=== PATIENT | female | born 1985 | race African-American/Black ===

== ENCOUNTER 2019-09-04 00:19 | Emergency (ER) | payer MEDICARE, OTHER ==
[~2019-09-04] VITALS: Ht 172.7 cm; Wt 127.0 kg
[2019-09-04] MEDS ORDERED: IPRATROPIUM BROMIDE (0.02%) 0.5MG/2.5ML NEB HHN STA (00:36)
[2019-09-04] MEDS ORDERED: PREDNISONE 20MG TABLET PO STA (00:36)
[2019-09-04] MEDS ORDERED: ALBUTEROL (0.083%) 2.5MG/3ML NEB HHN STA (00:36)
[2019-09-04] MEDS ORDERED: MAGNESIUM 2 G PREMIX 50 ML IV ONE (00:45)
[2019-09-04 00:55] LABS: BASOPHILS % 1.2 % (0.0-2.0); EOSINOPHILS % 0.2 % (0.0-5.0); HEMATOCRIT. 40.8 % (36.0-48.0); HEMOGLOBIN. 13.1 g/dL (12.0-16.0); MEAN CORPUSCULAR HEMOGLOBIN 29.1 pg (28.0-32.0); MEAN CORPUSCULAR VOLUME 90.8 fL (81.0-99.0); MEAN PLATELET VOLUME 8.6 fl (7.4-10.4); MONOCYTES % 9.5 % (2.0-8.0); NEUTROPHILS % 49.1 % (40.0-76.0); PLATELET 329 x1000/uL (130-400); RED BLOOD CELL COUNT 4.49 mill/uL (4.2-5.4)
[2019-09-04 00:58] LABS: CHLORIDE 108 mEq/L (98-107)
[2019-09-04] MEDS ORDERED: IOHEXOL-350 100 ML BOTTLE ONE (03:45)
[2019-09-04] MEDS ORDERED: CEFTRIAXONE 1 G PREMIX 50 ML IV ONE (04:30)
[2019-09-04] MEDS ORDERED: AZITHROMYCIN 500 MG in DEXT 5% WATER 250 ML IV SCH (04:30)
[2019-09-04 04:53] VITALS: BP 113/91
== END 2019-09-04 04:50 | disposition home or self-care (01) ==
LOC: ER 00:38 → CANBEDREQ 05:17
DX: J45.909 Unspecified asthma, uncomplicated (principal); J06.9 Acute upper respiratory infection, unspecified; R00.0 Tachycardia, unspecified; F31.9 Bipolar disorder, unspecified; F20.9 Schizophrenia, unspecified; F17.290 Nicotine dependence, other tobacco product, uncomplicated; Z88.2 Allergy status to sulfonamides
CPT/HCPCS: 36415; 71045; 71275; 80053; 81025; 83605; 83615; 83880; 84145; 85025; 85379; 87040; 87086; 87804; 93005; 94640; 96365; 96366; 96367; 96368; 99285; J0456; J0696; J3475; J7060; J7512; Q9967

== ENCOUNTER 2021-09-29 18:15 | Inpatient (IN) | payer MEDICARE, OTHER ==
[~2021-09-29] VITALS: Ht 167.6 cm; Wt 103.9 kg
[2021-09-29 19:00] LABS: BASOPHILS % 0.5 % (0.0-2.0); EOSINOPHILS % 0.6 % (0.0-5.0); HEMATOCRIT. 44.7 % (36.0-48.0); HEMOGLOBIN. 14.1 g/dL (12.0-16.0); LYMPHOCYTES % 27.9 % (20.0-50.0); MEAN CORPUSCULAR HEMOGLOBIN 28.6 pg (28.0-32.0); MEAN PLATELET VOLUME 8.3 fl (7.4-10.4); MONOCYTES % 14.4 % (2.0-8.0); NEUTROPHILS % 56.6 % (40.0-76.0); PLATELET 260 x1000/uL (130-400); RED BLOOD CELL COUNT 4.91 mill/uL (4.2-5.4); RED CELL DISTRIBUTION WIDTH 16.9 % (11.6-14.6)
[2021-09-29 19:04] LABS: CHLORIDE 104 mEq/L (98-107)
[2021-09-29] MEDS ORDERED: FUROSEMIDE 40MG/4ML VIAL IVP NR (20:00)
[2021-09-29] MEDS ORDERED: ASPIRIN 325MG EC TABLET PO NR (20:00)
[2021-09-29] MEDS ORDERED: ENOXAPARIN 40MG/0.4ML SYR SUBCUT SCH (22:15)
[2021-09-29] MEDS ORDERED: CLONIDINE 0.1MG TABLET PO PRN (22:15)
[2021-09-29] MEDS ORDERED: ONDANSETRON HCL 4MG/2ML INJ IV PRN (22:15)
[2021-09-29] MEDS ORDERED: ACETAMINOPHEN 325MG TABLET PO PRN ×2 (22:15)
[2021-09-29] MEDS ORDERED: ZOLPIDEM TARTRATE 5MG TABLET PO PRN (22:15)
[2021-09-29] MEDS ORDERED: MAGNESIUM/ALUMINUM HYDROXIDE/SIMETHICONE 30ML UDC PO PRN (22:15)
[2021-09-29] MEDS ORDERED: GUAIFENESIN 200MG/10ML SUGAR FREE UDC PO PRN (22:15)
[2021-09-29] MEDS ORDERED: NITROGLYCERIN 0.4MG TABLET SL SL PRN (22:15)
[2021-09-29] MEDS ORDERED: IPRATROPIUM/ALBUTEROL 0.5-3(2.5)MG/3ML NEB NEB PRN (22:15)
[2021-09-29] MEDS ORDERED: LORAZEPAM 0.5MG TABLET PO PRN (22:15)
[2021-09-29] MEDS ORDERED: DEXTROSE 50% WATER 50ML SYRINGE IV PRN (22:15)
[2021-09-29] MEDS ORDERED: DOCUSATE SODIUM 100MG CAPSULE PO PRN (22:15)
[2021-09-29] MEDS ORDERED: KETOROLAC 15MG/ML VIAL IV PRN (22:15)
[2021-09-29 22:26] LABS: ETHANOL BLOOD < 10 mg/dL
[2021-09-29 22:28] LABS: LDL CHOLESTEROL 79 mg/dL (5-100); TOTAL IRON BINDING CAPACITY 441 ug/dL (250-450)
[2021-09-29 22:30] LABS: HDL CHOLESTEROL 40 mg/dL (40-59)
[2021-09-29] MEDS: INSULIN LISPRO 100 UNITS/ML SUBCUT SCH (22:30)
[2021-09-29 22:55] LABS: FOLIC ACID (FOLATE) SERUM 15.2 ng/mL (>5.38)
[2021-09-29] MEDS: BLOOD SUGAR DIAGNOSTIC STRIP TEST SCH (23:16)
[2021-09-30] MEDS: CARVEDILOL 3.125 MG TABLET PO SCH ×2 (06:06→18:38)
[2021-09-30] MEDS: BLOOD SUGAR DIAGNOSTIC STRIP TEST SCH ×4 (06:46→21:00)
[2021-09-30] MEDS: INSULIN LISPRO 100 UNITS/ML SUBCUT SCH ×4 (06:54→21:00)
[2021-09-30] MEDS: FUROSEMIDE 40MG/4ML VIAL IVP SCH ×2 (07:54→18:38)
[2021-09-30 09:41] LABS: HEMATOCRIT. 45.6 % (36.0-48.0); HEMOGLOBIN. 14.6 g/dL (12.0-16.0); MEAN CORPUSCULAR HEMOGLOBIN 28.8 pg (28.0-32.0); MEAN CORPUSCULAR VOLUME 89.8 fL (81.0-99.0); MEAN PLATELET VOLUME 8.2 fl (7.4-10.4); PLATELET 283 x1000/uL (130-400); RED BLOOD CELL COUNT 5.08 mill/uL (4.2-5.4); RED CELL DISTRIBUTION WIDTH 17.2 % (11.6-14.6)
[2021-09-30 09:59] LABS: CHLORIDE 107 mEq/L (98-107)
[2021-09-30 10:05] LABS: PHOSPHORUS 3.7 mg/dL (2.5-4.9)
[2021-09-30 10:13] LABS: CREATINE KINASE MB FRACTION 1.5 ng/mL (0.5-3.6)
[2021-09-30] MEDS: ASPIRIN 325MG EC TABLET PO SCH (11:34)
[2021-09-30] MEDS: FAMOTIDINE 20MG TABLET PO SCH ×2 (11:36→21:48)
[2021-09-30] MEDS: SPIRONOLACTONE 25MG TABLET PO SCH ×2 (11:36→21:49)
[2021-09-30] MEDS: LISINOPRIL 5MG TABLET PO SCH ×2 (11:38→21:48)
[2021-09-30] MEDS: ENOXAPARIN 30MG/0.3ML SYR SUBCUT SCH ×2 (11:39→21:46)
[2021-09-30 11:58] VITALS: BP 144/97
[2021-09-30 12:00] VITALS: BP 144/97
[2021-09-30] MEDS ORDERED: SPIR25TA6 PO (12:37)
[2021-09-30] MEDS ORDERED: APIX2.5T PO (12:39)
[2021-09-30] MEDS ORDERED: METF-874 MT (12:39)
[2021-09-30] MEDS ORDERED: FURO-151 PO (12:39)
[2021-09-30] MEDS ORDERED: VALS40TA11 PO (12:39)
[2021-09-30] MEDS ORDERED: CARV6.2548 PO (12:39)
[2021-09-30 13:00] LABS: PLATELET ESTIMATE NORMAL
[2021-09-30 14:13] LABS: *AMPHETAMINES SCREEN URINE NEGATIVE (NEGATIVE); *BARBITURATES SCREEN URINE NEGATIVE (NEGATIVE); *BENZODIAZEPINES SCREEN URINE NEGATIVE (NEGATIVE); PHENCYCLIDINE URINE SCREEN NEGATIVE (NEGATIVE)
[2021-09-30 14:14] LABS: *COCAINE SCREEN URINE NEGATIVE (NEGATIVE)
[2021-09-30 14:16] LABS: METHADONE URINE SCREEN NEGATIVE (NEGATIVE); OPIATES URINE SCREEN NEGATIVE (NEGATIVE)
[2021-09-30 14:40] LABS: CANNABINOID URINE SCREEN PRESUMTIVE POSITIVE (NEGATIVE)
[2021-09-30 15:34] LABS: CREATINE KINASE MB FRACTION 1.2 ng/mL (0.5-3.6)
[2021-09-30 16:00] VITALS: BP 147/99
[2021-09-30 20:00] VITALS: BP 145/102
[2021-10-01] MEDS: CARVEDILOL 3.125 MG TABLET PO SCH ×2 (06:00→19:03)
[2021-10-01] MEDS: FUROSEMIDE 40MG/4ML VIAL IVP SCH ×2 (07:17→19:02)
[2021-10-01] MEDS: BLOOD SUGAR DIAGNOSTIC STRIP TEST SCH ×4 (07:18→21:13)
[2021-10-01] MEDS: INSULIN LISPRO 100 UNITS/ML SUBCUT SCH ×4 (07:40→21:22)
[2021-10-01 08:00] VITALS: BP 131/96
[2021-10-01] MEDS: ASPIRIN 325MG EC TABLET PO SCH (10:28)
[2021-10-01] MEDS: SPIRONOLACTONE 25MG TABLET PO SCH ×2 (10:28→21:12)
[2021-10-01] MEDS: FAMOTIDINE 20MG TABLET PO SCH ×2 (10:28→21:12)
[2021-10-01] MEDS: LISINOPRIL 5MG TABLET PO SCH ×2 (10:29→21:12)
[2021-10-01] MEDS: ENOXAPARIN 30MG/0.3ML SYR SUBCUT SCH ×2 (10:31→21:13)
[2021-10-01 12:00] VITALS: BP 128/104
[2021-10-01 16:00] VITALS: BP 133/90
[2021-10-01 20:00] VITALS: BP 128/97
[2021-10-02] VITALS: BP 104/62
[2021-10-02 04:00] VITALS: BP 137/81
[2021-10-02] MEDS: BLOOD SUGAR DIAGNOSTIC STRIP TEST SCH ×2 (06:27→12:09)
[2021-10-02] MEDS: INSULIN LISPRO 100 UNITS/ML SUBCUT SCH ×2 (06:27→12:40)
[2021-10-02] MEDS: FUROSEMIDE 40MG/4ML VIAL IVP SCH (06:31)
[2021-10-02] MEDS: CARVEDILOL 3.125 MG TABLET PO SCH (06:31)
[2021-10-02 08:00] VITALS: BP 112/73
[2021-10-02] MEDS: ASPIRIN 325MG EC TABLET PO SCH (08:28)
[2021-10-02] MEDS: SPIRONOLACTONE 25MG TABLET PO SCH (08:28)
[2021-10-02] MEDS: FAMOTIDINE 20MG TABLET PO SCH (08:28)
[2021-10-02] MEDS: LISINOPRIL 5MG TABLET PO SCH (08:28)
[2021-10-02] MEDS: ENOXAPARIN 30MG/0.3ML SYR SUBCUT SCH (08:29)
[2021-10-02 12:00] VITALS: BP 127/71
[2021-10-02 12:26] VITALS: BP 127/71
== END 2021-10-02 14:30 | disposition home or self-care (01) | DRG 280 ==
LOC: ER 18:15 → MICUSO 21:47 → SUPCPDRO 22:04 → 8WST 09-30 09:40
PROVIDERS: ADMIT Internal Medicine; ATTEND Internal Medicine
DX: I21.4 Non-ST elevation (NSTEMI) myocardial infarction (principal); I50.43 Acute on chronic combined systolic (congestive) and diastolic (congestive) heart failure; E44.0 Moderate protein-calorie malnutrition; E87.1 Hypo-osmolality and hyponatremia; I11.0 Hypertensive heart disease with heart failure; E11.9 Type 2 diabetes mellitus without complications; E66.9 Obesity, unspecified; F12.10 Cannabis abuse, uncomplicated; F17.210 Nicotine dependence, cigarettes, uncomplicated; Z79.4 Long term (current) use of insulin; Z79.899 Other long term (current) drug therapy; Z68.37 Body mass index [BMI] 37.0-37.9, adult; Z71.3 Dietary counseling and surveillance; Z86.711 Personal history of pulmonary embolism; Z91.14 Patient's other noncompliance with medication regimen; Z98.891 History of uterine scar from previous surgery; Z88.2 Allergy status to sulfonamides; Z71.6 Tobacco abuse counseling
CPT/HCPCS: 36415; 71045; 80053; 80061; 80305; 80320; 82550; 82553; 82607; 82746; 82962; 83036; 83540; 83550; 83735; 83880; 84100; 84443; 84484; 85025; 87070; 93005; 93970; 99285; J1650; J1815; J1940; G0480

== ENCOUNTER → 2021-11-29 | Outpatient (CLI) | payer MEDICARE, OTHER ==
[~2021-11-29] MED LIST: APIX2.5T PO; CARV6.2548 PO; FURO-151 PO; METF-874 MT; SPIR25TA6 PO; VALS40TA11 PO
== END | disposition home or self-care (01) ==
LOC: CARD 09:55
PROVIDERS: ATTEND Internal Medicine
DX: I08.1 Rheumatic disorders of both mitral and tricuspid valves (principal); I50.9 Heart failure, unspecified; R06.02 Shortness of breath; I27.20 Pulmonary hypertension, unspecified
CPT/HCPCS: 93005; 93306

== ENCOUNTER 2021-12-19 10:13 | Emergency (ER) | payer MEDICARE, OTHER ==
[~2021-12-19] VITALS: Ht 167.6 cm; Wt 82.0 kg
[2021-12-19 11:31] VITALS: BP 143/74
[2021-12-19] MEDS ORDERED: ACETAMINOPHEN 325MG TABLET PO STA (12:43)
[2021-12-19 13:35] LABS: CLARITY URINE CLEAR (CLEAR); COLOR URINE YELLOW (YELLOW); KETONES URINE TRACE (NEGATIVE); LEUKOCYTE ESTERASE URINE NEGATIVE (NEGATIVE); NITRITE URINE POSITIVE (NEGATIVE); OCCULT BLOOD URINE NEGATIVE (NEGATIVE); PH URINE 5.5 (4.5-8.0); PROTEIN URINE TRACE (NEGATIVE); UROBILINOGEN URINE 0.2 E.U./dL (0.2-1.0)
[2021-12-19] MEDS: CEFTRIAXONE SODIUM 500 MG/VIAL IM NR (14:15)
[2021-12-19] MEDS: LIDOCAINE HCL 1% 20ML VIAL (Pyxis) INJ INFIL NR (14:15)
[2021-12-19] MEDS ORDERED: FLUC150T46 PO (15:35)
[2021-12-19] MEDS ORDERED: ACET-2708 PO (15:35)
[2021-12-19] MEDS ORDERED: DOXY100T28 PO (15:35)
[2021-12-21 09:10] LABS: NEISSERIA GONORRHOEAE NAA Negative (Negative)
[2021-12-22] MEDS ORDERED: NITR-87 MT (17:42)
== END 2021-12-19 15:52 | disposition home or self-care (01) ==
LOC: ER 10:13
DX: U07.1 COVID-19 (principal); B37.3 Candidiasis of vulva and vagina; F12.10 Cannabis abuse, uncomplicated; E11.9 Type 2 diabetes mellitus without complications; I11.0 Hypertensive heart disease with heart failure; I50.9 Heart failure, unspecified; Z98.890 Other specified postprocedural states
CPT/HCPCS: 81003; 87077; 87086; 87186; 87210; 87426; 87491; 87591; 96372; 99283; C9803; J0696; J3490

== ENCOUNTER 2022-03-10 15:51 | Emergency (ER) | payer MEDICARE, OTHER ==
[~2022-03-10] VITALS: Ht 167.6 cm; Wt 100.0 kg
[~2022-03-10 15:51] MED LIST changes: +ACET-2708 PO; +DOXY100T28 PO; +FLUC150T46 PO; +NITR-87 MT
[2022-03-10 16:09] VITALS: BP 189/116
[2022-03-13] MEDS ORDERED: LOSA25TA26 MT (16:36)
[2022-03-13] MEDS ORDERED: ESCI5TAB16 MT (16:36)
[2022-03-13] MEDS ORDERED: METF-414 MT ×2 (16:36)
[2022-03-13] MEDS ORDERED: EMPA25TA MT (16:36)
[2022-03-13] MEDS ORDERED: ARIP15TA2 MT (16:36)
[2022-03-13] MEDS ORDERED: AMOX1TAB16 MT (16:36)
== END 2022-03-10 20:31 | disposition left against medical advice (07) ==
LOC: ER 15:51
DX: Z53.21 Procedure and treatment not carried out due to patient leaving prior to being seen by health care provider (principal)

== ENCOUNTER 2023-03-16 11:54 | Emergency (ER) | payer MEDICARE, OTHER ==
[~2023-03-16] VITALS: Ht 175.3 cm; Wt 99.0 kg
[~2023-03-16 11:54] MED LIST changes: +AMOX1TAB16 MT; +ARIP15TA2 MT; -CARV6.2548 PO; +EMPA25TA MT; +ESCI5TAB16 MT; +LOSA25TA26 MT; +METF-414 MT; -METF-874 MT; -VALS40TA11 PO
[2023-03-16 12:00] VITALS: BP 135/89; RESP 20; TEMP 98.7; O2SAT 97
[2023-03-16 12:02] VITALS: PULSE 97
[2023-03-16 13:10] LABS: BASOPHILS % 0.6 % (0.0-2.0); EOSINOPHILS % 0.5 % (0.0-5.0); HEMATOCRIT. 43.7 % (36.0-48.0); MEAN CORPUSCULAR HEMOGLOBIN 29.3 pg (28.0-32.0); MEAN CORPUSCULAR HGB CONC 32.1 g/dL (31.0-37.0); MEAN CORPUSCULAR VOLUME 91.2 fL (81.0-99.0); MEAN PLATELET VOLUME 8.4 fl (7.4-10.4); MONOCYTES % 6.1 % (2.0-8.0); NEUTROPHILS % 59.8 % (40.0-76.0); PLATELET 310 x1000/uL (130-400); RED BLOOD CELL COUNT 4.79 mill/uL (4.2-5.4); RED CELL DISTRIBUTION WIDTH 14.7 % (11.6-14.6); WHITE BLOOD COUNT 8.1 x1000/uL (4.5-11.0)
[2023-03-16 13:43] LABS: CHLORIDE 106 mEq/L (98-107); HCG SCREEN NEGATIVE; INDEX HEMOLYSI 1 (1-3); INDEX ICTERIC 1 (1-4); INDEX LIPEMIC 1 (1-3); POTASSIUM 3.7 mEq/L (3.5-5.1); SODIUM 138 mEq/L (136-145)
[2023-03-16 13:57] LABS: ALANINE AMINOTRANSFERASE 21 IU/L (13-61); ALBUMIN 3.6 g/dL (3.4-5.0); ASPARTATE AMINOTRANSFERASE 21 IU/L (15-37); BILIRUBIN TOTAL 0.8 mg/dL (0.1-1.0); CALCIUM 8.9 mg/dL (8.5-10.1); CARBON DIOXIDE 25 mEq/L (21-32); CREATININE 0.9 mg/dL (0.6-1.3); GLUCOSE 181 mg/dL (70-105); NT PRO B-TYPE NATRIURETIC PEP 239 pg/mL (5-125); PROTEIN TOTAL 8.3 g/dL (6.0-8.3); TROPONIN I HIGH SENSITIVITY 22 ng/L (<54); UREA NITROGEN BLOOD 12 mg/dL (7-21)
[2023-03-16] MEDS ORDERED: MAGNESIUM/ALUMINUM HYDROXIDE/SIMETHICONE 30ML UDC PO STA (14:35)
[2023-03-16 15:09] LABS: CLARITY URINE CLOUDY (CLEAR); COLOR URINE YELLOW (YELLOW); GLUCOSE URINE 3+ (NEGATIVE); KETONES URINE TRACE (NEGATIVE); LEUKOCYTE ESTERASE URINE NEGATIVE (NEGATIVE); NITRITE URINE POSITIVE (NEGATIVE); OCCULT BLOOD URINE NEGATIVE (NEGATIVE); PH URINE 5.5 (4.5-8.0); PROTEIN URINE NEGATIVE (NEGATIVE); SPECIFIC GRAVITY URINE 1.039 (1.005-1.030); UROBILINOGEN URINE 0.2 E.U./dL (0.2-1.0)
[2023-03-16 15:13] LABS: YEAST URINE NONE SEEN
[2023-03-16] MEDS ORDERED: MAGNESIUM/ALUMINUM HYDROXIDE/SIMETHICONE 30ML UDC PO NR (16:30)
[2023-03-16 17:00] LABS: BACTERIA URINE 3+; SQUAMOUS EPITHELIAL CELL URINE 1+ /lpf (RARE/1+); WBC URINE 0-2 /hpf (0-2)
[2023-03-16] MEDS ORDERED: MAG355OR21 MT (17:20)
[2023-03-16] MEDS ORDERED: CEPH500C2 MT (17:20)
== END 2023-03-16 17:38 | disposition home or self-care (01) ==
LOC: ER 11:54
DX: N30.00 Acute cystitis without hematuria (principal); J45.909 Unspecified asthma, uncomplicated; I11.0 Hypertensive heart disease with heart failure; I50.9 Heart failure, unspecified; E11.9 Type 2 diabetes mellitus without complications; F12.90 Cannabis use, unspecified, uncomplicated; Z88.0 Allergy status to penicillin; Z88.2 Allergy status to sulfonamides; Z88.8 Allergy status to other drugs, medicaments and biological substances; Z79.899 Other long term (current) drug therapy; Z98.890 Other specified postprocedural states
CPT/HCPCS: 36415; 74176; 80053; 81003; 81025; 82962; 83880; 84484; 84703; 85025; 93005; 99284

== ENCOUNTER 2023-04-11 22:56 | Emergency (ER) | payer MEDICARE, OTHER ==
[~2023-04-11] VITALS: Ht 167.6 cm; Wt 110.4 kg
[~2023-04-11 22:56] MED LIST changes: +CEPH500C2 MT; +MAG355OR21 MT
[2023-04-11 23:09] VITALS: O2SAT 98
[2023-04-11 23:53] LABS: BASOPHILS % 0.4 % (0.0-2.0); HEMATOCRIT. 38.6 % (36.0-48.0); HEMOGLOBIN. 12.6 g/dL (12.0-16.0); LYMPHOCYTES % 20.9 % (20.0-50.0); MEAN CORPUSCULAR HEMOGLOBIN 29.4 pg (28.0-32.0); MEAN CORPUSCULAR HGB CONC 32.8 g/dL (31.0-37.0); MEAN CORPUSCULAR VOLUME 89.8 fL (81.0-99.0); MEAN PLATELET VOLUME 8.7 fl (7.4-10.4); MONOCYTES % 10.8 % (2.0-8.0); NEUTROPHILS % 67.9 % (40.0-76.0); PLATELET 196 x1000/uL (130-400); WHITE BLOOD COUNT 7.3 x1000/uL (4.5-11.0)
[2023-04-12] LABS: CHLORIDE 104 mEq/L (98-107); INDEX HEMOLYSI 1 (1-3); INDEX ICTERIC 1 (1-4); INDEX LIPEMIC 1 (1-3); POTASSIUM 3.9 mEq/L (3.5-5.1); SODIUM 137 mEq/L (136-145)
[2023-04-12 00:10] LABS: ALANINE AMINOTRANSFERASE 23 IU/L (13-61); ASPARTATE AMINOTRANSFERASE 23 IU/L (15-37); BILIRUBIN TOTAL 0.6 mg/dL (0.1-1.0); CALCIUM 8.5 mg/dL (8.5-10.1); CARBON DIOXIDE 25 mEq/L (21-32); GLUCOSE 157 mg/dL (70-105); PROTEIN TOTAL 8.2 g/dL (6.0-8.3); TROPONIN I HIGH SENSITIVITY 12 ng/L (<54); UREA NITROGEN BLOOD 14 mg/dL (7-21)
[2023-04-12 01:24] LABS: CLARITY URINE TURBID (CLEAR); COLOR URINE DARK YELLOW (YELLOW); GLUCOSE URINE NEGATIVE (NEGATIVE); KETONES URINE 2+ (NEGATIVE); LEUKOCYTE ESTERASE URINE 1+ (NEGATIVE); NITRITE URINE POSITIVE (NEGATIVE); OCCULT BLOOD URINE 3+ (NEGATIVE); PH URINE 5.5 (4.5-8.0); PROTEIN URINE 3+ (NEGATIVE); SPECIFIC GRAVITY URINE 1.034 (1.005-1.030)
[2023-04-12 01:27] LABS: SQUAMOUS EPITHELIAL CELL URINE 1+ /lpf (RARE/1+)
[2023-04-12] MEDS ORDERED: METOCLOPRAMIDE HCL 10MG/2ML VIAL IV NR (02:15)
[2023-04-12] MEDS ORDERED: ACETAMINOPHEN 325MG TABLET PO NR (02:15)
[2023-04-12] MEDS ORDERED: SODIUM CHLORIDE 0.9% 1,000 ML IV NR (02:15)
[2023-04-12] MEDS ORDERED: GUAIFENESIN 600MG ER TABLET PO SCH (02:30)
[2023-04-12] MEDS ORDERED: SODIUM CHLORIDE 0.9% 250 ML IV ONE (02:45)
[2023-04-12] MEDS ORDERED: GUAI600T26 MT (04:09)
[2023-04-12] MEDS ORDERED: ACET-2708 MT (04:09)
[2023-04-12] MEDS ORDERED: NITR-87 MT (04:10)
[2023-04-12] MEDS ORDERED: ONDA4TAB50 MT (04:22)
[2023-04-12 05:02] VITALS: BP 118/76; PULSE 89; RESP 16; TEMP 99.4
[2023-04-12 05:24] LABS: WBC URINE 15-25 /hpf (0-2)
[2023-04-12 05:26] LABS: BACTERIA URINE 3+
[2023-04-12 05:27] LABS: YEAST URINE NONE SEEN
== END 2023-04-12 05:05 | disposition home or self-care (01) ==
LOC: ER 22:56
DX: N39.0 Urinary tract infection, site not specified (principal); G44.209 Tension-type headache, unspecified, not intractable; B34.9 Viral infection, unspecified; F12.10 Cannabis abuse, uncomplicated; I11.0 Hypertensive heart disease with heart failure; I50.9 Heart failure, unspecified; Z20.822 Contact with and (suspected) exposure to COVID-19; Z88.0 Allergy status to penicillin; Z88.2 Allergy status to sulfonamides; Z79.899 Other long term (current) drug therapy
CPT/HCPCS: 99285; 80053; 81025; 83690; 85025; 84484; 36415; 96374; 70450; 71045; 96361; 87426; 81003; 87086; 87186; J2765; J7050; C9803

== ENCOUNTER 2023-10-10 16:47 | Emergency (ER) | payer MEDICARE, MEDICAID ==
[~2023-10-10] VITALS: Ht 167.6 cm; Wt 122.0 kg
[~2023-10-10 16:47] MED LIST changes: +ACET-2708 MT; +GUAI600T26 MT; +ONDA4TAB50 MT
[2023-10-10 16:54] VITALS: BP 152/97; TEMP 98.5
[2023-10-10] MEDS: IPRATROPIUM BROMIDE (0.02%) 0.5MG/2.5ML NEB HHN STA (18:34)
[2023-10-10] MEDS: ALBUTEROL (0.083%) 2.5MG/3ML NEB HHN STA (18:35)
[2023-10-10 18:45] VITALS: PULSE 78; RESP 16; O2SAT 98
[2023-10-10 19:51] LABS: BASOPHILS % 0.9 % (0.0-2.0); EOSINOPHILS % 0.7 % (0.0-5.0); HEMATOCRIT. 41.1 % (36.0-48.0); HEMOGLOBIN. 13.7 g/dL (12.0-16.0); LYMPHOCYTES % 38.8 % (20.0-50.0); MEAN CORPUSCULAR HEMOGLOBIN 30.5 pg (28.0-32.0); MEAN CORPUSCULAR HGB CONC 33.3 g/dL (31.0-37.0); MEAN CORPUSCULAR VOLUME 91.5 fL (81.0-99.0); MEAN PLATELET VOLUME 7.8 fl (7.4-10.4); MONOCYTES % 12.4 % (2.0-8.0); NEUTROPHILS % 47.2 % (40.0-76.0); PLATELET 307 x1000/uL (130-400); RED BLOOD CELL COUNT 4.49 mill/uL (4.2-5.4); RED CELL DISTRIBUTION WIDTH 15.1 % (11.6-14.6)
[2023-10-10 19:59] LABS: CARBON DIOXIDE 26 mEq/L (21-32); CHLORIDE 109 mEq/L (98-107); POTASSIUM 3.3 mEq/L (3.5-5.1); SODIUM 140 mEq/L (136-145)
[2023-10-10 20:00] LABS: CALCIUM 9.8 mg/dL (8.7-10.4)
[2023-10-10 20:04] LABS: CREATININE 0.8 mg/dL (0.6-1.0); GLUCOSE 140 mg/dL (70-105)
[2023-10-10 20:05] LABS: UREA NITROGEN BLOOD 8 mg/dL (9-23)
[2023-10-10 20:06] LABS: TROPONIN I HIGH SENSITIVITY 12 ng/L (3.0-34)
[2023-10-10 20:07] LABS: ALANINE AMINOTRANSFERASE 10 IU/L (10-49); ALBUMIN 4.7 g/dL (3.2-4.8); ASPARTATE AMINOTRANSFERASE 20 IU/L (<34); BILIRUBIN TOTAL 0.6 mg/dL (0.1-1.0); PROTEIN TOTAL 8.1 g/dL (6.0-8.3)
[2023-10-10] MEDS ORDERED: AZIT250T12 MT (20:47)
[2023-10-10] MEDS ORDERED: ALBU6.7H15 INH (21:30)
== END 2023-10-10 22:37 | disposition home or self-care (01) ==
LOC: ER 16:47
DX: R07.89 Other chest pain (principal); R05.9 Cough, unspecified; I11.0 Hypertensive heart disease with heart failure; I50.9 Heart failure, unspecified; E11.9 Type 2 diabetes mellitus without complications; F12.10 Cannabis abuse, uncomplicated; Z20.822 Contact with and (suspected) exposure to COVID-19
CPT/HCPCS: 36415; 71045; 80053; 83880; 84484; 85025; 87420; 87426; 93005; 94640; 99285